=== PATIENT | male | born 1955 | race Caucasian/White ===

== ENCOUNTER 2020-02-29 08:16 | Emergency (ER) | payer MEDICARE, SELFPAY ==
--- NOTE | 2020-02-29 08:18 | ED.GENADULT ---
HPI - General Adult General Chief complaint: Upper Respiratory Infection Stated complaint: short of breat/dizzy/sweaty Time Seen by Provider: 02/29/20 08:18 Source: patient Mode of arrival: ambulatory Limitations: no limitations History of Present Illness HPI narrative: 64-year-old male patient presents to the [facility] with complaints of chest pain and dizziness along with some shortness of breath that started this morning after he woke up. Patient states he has been dealing with some of the shortness of breath and the chest pain for the past 5 or 6 days now and is been intermittent. Patient states he did see his primary doctor yesterday and had some blood work done however he has not had any results. Patient was told by his doctor he might need an ultrasound but again has not had any results yet. Patient states he woke up this morning went to go the bathroom and suddenly got dizzy, shortness of breath chest pain that radiates to the back as well as some nausea. Patient states he had to go and lay down. Patient is tearful during exam. Related Data Home Medications Medication Instructions Recorded Confirmed acyclovir 400 mg PO DIRECTED 02/29/20 02/29/20 baclofen 20 mg PO DAILY 02/29/20 02/29/20 famotidine 40 mg PO BID 02/29/20 02/29/20 finasteride 5 mg PO DIRECTED 02/29/20 02/29/20 tamsulosin 0.4 mg PO DIRECTED 02/29/20 02/29/20 Allergies Allergy/AdvReac Type Severity Reaction Status Date / Time No Known Drug Allergies Allergy Verified 06/25/12 16:33 Review of Systems Review of Systems: Narrative: CONSTITUTIONAL: Denies fever, chills, or sweats. EYES: Denies visual changes, redness, or discharge. ENT: Denies rhinorrhea, congestion, sore throat, or otalgia. CARDIOVASCULAR: Positive chest pain, denies palpitations, or edema. RESPIRATORY: Denies cough, positive dyspnea. GASTROINTESTINAL: Denies abdominal pain, positive nausea, denies vomiting, or diarrhea. GENITOURINARY: Denies dysuria or hematuria. SKIN: Denies rash or itching. MUSCULOSKELETAL: Denies back pain, joint pain, or myalgia. NEUROLOGIC: Denies headache, numbness, or weakness. Positive dizziness PSYCHIATRIC: Denies anxiety or depression. [facility] Past Medical History Medical History (Updated 02/29/20 @ 08:58 by GUSTAVO Rhodes) Chronic back pain Depression Surgical History Surgical History (Updated 02/29/20 @ 08:52 by GUSTAVO Rhodes) History of appendectomy History of cholecystectomy History of common bile duct surgery Comments At the time of my signature I agree with nursing past medical history, surgical, social, and family history. There is no relevant family history pertinent to the presenting complaint. Exam Narrative: Exam Narrative: GENERAL: Well-appearing, well-nourished, and in no acute distress. Patient tearful during exam. HEAD: Normocephalic, atraumatic. EYES: PERRLA and EOMI. ENT: Nares clear, no rhinorrhea or epistaxis. Mucous membranes moist. Bilateral TMs are clear with no erythema or foreign bodies to the canal. Posterior pharynx no erythema, tonsil enlargement, exudates or lesions. NECK: Supple. No lymphadenopathy CHEST: Clear to auscultation. No respiratory distress. Patient able talk in clear complete sentences. HEART: Regular rate and rhythm. No murmur heard. Normal peripheral pulses. ABDOMEN: Soft, flat, nondistended. No guarding, rebound tenderness, or rigid. No pulsatilla masses. Bowel sounds present in all four quadrants. No organomegaly. Negative Garcia?s sign. No periumbicial tenderness. No Supra public tenderness or distension. Good femoral pulses bilaterally. No hernia noted. No scars or surface trauma. EXTREMITIES: Normal range of motion. No edema. SKIN: Warm, dry, no rash. NEURO: No focal deficits. Alert and oriented x3. Course Vital Signs Vital signs: Vital Signs Temperature 37.2 C 02/29/20 08:25 Pulse Rate 66 02/29/20 08:25 Respiratory Rate 16 02/29/20 08:25 Blood Pressure
[2020-02-29 08:25] VITALS: BP 124/78; PULSE 66; RESP 16; TEMP 37.2; O2SAT 99
--- NOTE | 2020-02-29 08:37 | ECG_ITS ---
Measurements Intervals [place] Rate: 67 P: 17 NC: 175 QRS: -28 QRSD: 86 T: 49 QT: 399 QTc: 421 Interpretive Statements SINUS RHYTHM LOW QRS VOLTAGE IN LIMB LEADS BORDERLINE ECG Electronically Signed On 02-29-2020 12:00:41 CDT by Hung Thao D.O.
[2020-02-29] MEDS: ASPIRIN 81 MG CHEWABLE TABLET 324 MG PO (08:53)
== END 2020-02-29 08:52 | disposition short-term general hospital (02) ==
PROVIDERS: Emergency Provider Nurse Practitioner Family; PCP Internal Medicine Geriatric Medicine
DX: R07.9 Chest pain, unspecified (principal); R06.02 Shortness of breath; R42 Dizziness and giddiness; F32.9 Major depressive disorder, single episode, unspecified; M19.90 Unspecified osteoarthritis, unspecified site; N40.0 Benign prostatic hyperplasia without lower urinary tract symptoms; G62.9 Polyneuropathy, unspecified; Z85.51 Personal history of malignant neoplasm of bladder
CPT/HCPCS: 93005; 99203; A9270; G0463

== ENCOUNTER 2021-04-19 11:49 | Emergency (ER) | payer MEDICARE, SELFPAY ==
[2021-04-19 11:53] VITALS: BP 122/67; PULSE 83; RESP 20; TEMP 36.6; O2SAT 99
--- NOTE | 2021-04-19 11:54 | ED.URI ---
HPI - URI/Sore Throat General Chief Complaint: Upper Respiratory Infection Stated Complaint: Covid Symptoms Time Seen by Provider: 04/19/21 11:54 Source: patient and RN notes reviewed History of Present Illness HPI Narrative: Patient is a 65-year-old male who presents the urgent care with complaints of runny nose, cough, sneezing, watery eyes and fatigue. Patient states that he was called about his scheduled stress test that is supposed to be on Monday and was told to come to our facility for preprocedure Covid test. Patient states his symptoms started approximately 3 or 4 days ago and he has been taking Benadryl and NyQuil [id number] for his symptoms. Patient denies of any fevers, nausea, vomiting, chest pain. Patient denies of any shortness of breath. Patient states that he has had Covid approximately 4 to 6 months ago and believes he also had Covid in September. Patient does not have the Covid vaccine. No other acute complaints. No acute distress noted. Patient aware of the plan of care. Some parts of this dictation were generated by voice recognition software and may contain typographical and/or grammatical inaccuracies. Related Data Home Medications Medication Instructions Recorded Confirmed acyclovir 400 mg PO BID 02/29/20 04/19/21 baclofen 20 mg PO TID 02/29/20 04/19/21 famotidine 40 mg PO BID 02/29/20 04/19/21 finasteride 5 mg PO DAILY 02/29/20 04/19/21 tamsulosin 0.4 mg PO DAILY 02/29/20 04/19/21 Allergies Allergy/AdvReac Type Severity Reaction Status Date / Time No Known Drug Allergies Allergy Unknown Verified 04/19/21 11:52 Review of Systems Review of Systems: CONSTITUTIONAL: Denies fever, chills, or sweats. Reports of fatigue EYES: Denies visual changes, redness.. Reports of watery eyes ENT: Reports of rhinorrhea, sneezing CARDIOVASCULAR: Denies chest pain, palpitations, or edema. RESPIRATORY: Denies cough or dyspnea. GASTROINTESTINAL: Denies abdominal pain, nausea, vomiting, or diarrhea. GENITOURINARY: Denies dysuria or hematuria. SKIN: Denies rash or itching. MUSCULOSKELETAL: Denies back pain, joint pain. Reports of body aches NEUROLOGIC: Denies headache, numbness, or weakness. All other systems reviewed are negative, except as documented in HPI. [facility] Past Medical History Medical History (Updated 04/19/21 @ 12:15 by GUSTAVO Anderson) Chronic back pain Depression Surgical History Surgical History (Updated 02/29/20 @ 08:52 by GUSTAVO Rhodes) History of appendectomy History of cholecystectomy History of common bile duct surgery Comments At the time of my signature, I reviewed and agree with the nursing past medical, surgical, social, and family history. There is no relevant family history pertinent to the patient complaint. Exam Narrative: GENERAL: This is a well-nourished, well-developed patient, in no apparent distress. HEAD: normocephalic, atraumatic. EYES: PERRL. Sclera clear/white. Vision is grossly intact. EARS: External ears normal, auditory canals clear and without drainage, TMs normal without perforation. Hearing grossly intact. NOSE: External nose normal with no obvious nasal discharge, nares without redness, no rhinorrhea. THROAT: Mucous membranes moist, posterior pharynx clear. Mild postnasal drainage NECK: Neck supple CARDIOVASCULAR: Regular rate and rhythm without murmurs, gallops, or rubs. RESPIRATORY: Clear to auscultation. Breath sounds equal bilaterally. No wheezes, rales, or rhonchi. SKIN: warm, intact with no suspicious lesions or rash, good texture and turgor. NEURO: awake, alert, and oriented to person, place and time. There were no obvious focal neurologic abnormalities. EXTREMITIES: No clubbing, cyanosis, or edema. Course Vital Signs Vital signs: Vital Signs Temperature 97.9 F 04/19/21 11:53 Pulse Rate 83 04/19/21 11:53 Respiratory Rate 20 04/19/21 11:53 Blood Pressure 122/67 04/19/21 11:53 Pulse Oximetry 99 04/19/21
[2021-04-20 19:55] LABS: SARS-CoV-2 RNA PCR Negative
== END 2021-04-19 12:18 | disposition home or self-care (01) ==
PROVIDERS: Emergency Provider Nurse Practitioner Family; PCP Internal Medicine Geriatric Medicine
DX: J06.9 Acute upper respiratory infection, unspecified (principal); Z20.822 Contact with and (suspected) exposure to COVID-19
CPT/HCPCS: 99213; C9803; G0463; U0003; U0005

== ENCOUNTER 2023-10-24 14:01 | Emergency (ER) | payer OTHER, MEDICARE, SELFPAY ==
[2023-10-24 14:10] VITALS: BP 121/78; PULSE 79; RESP 20; TEMP 37.2; O2SAT 97
--- NOTE | 2023-10-24 14:17 | ED.EYEPROB ---
HPI - Eye Problem General Chief complaint: Eye Problems Stated complaint: Right Eye Problem Source: patient Mode of arrival: ambulatory Limitations: no limitations History of Present Illness HPI Narrative: 68-year-old male presented for complaint of right eye irritation after hand brake tester squirted into his eye about an hour prior to arrival. Pt was unable to immediately irrigate. He held a cold compress to the site. Endorses burning, rates 4/10; mild blurred vision. MD chief complaint: eye pain Related Data Home Medications Medication Instructions Recorded Confirmed baclofen 20 mg tablet 20 mg PO TID 02/29/20 10/24/23 famotidine 40 mg tablet 40 mg PO BID 02/29/20 10/24/23 finasteride 5 mg tablet 5 mg PO DAILY 02/29/20 10/24/23 albuterol sulfate 90 mcg/actuation 2 puff inhalation Q6H PRN Wheezing 10/24/23 10/24/23 aerosol inhaler Allergies Allergy/AdvReac Type Severity Reaction Status Date / Time codeine AdvReac Nausea and Verified 10/24/23 14:55 Vomiting duloxetine AdvReac Nausea and Verified 10/24/23 14:54 Vomiting Review of Systems Review of Systems: CONSTITUTIONAL: Denies body aches, fever, chills EYES: Endorses pain to right eye; Denies visual changes, swelling, redness, FB sensation, photophobia ENT: Denies rhinorrhea, congestion, sore throat, or otalgia. CARDIOVASCULAR: Denies chest pain, palpitations RESPIRATORY: Denies cough or dyspnea. GASTROINTESTINAL: Denies abdominal pain, nausea, vomiting, or diarrhea. SKIN: Denies rash, itching, or wounds. MUSCULOSKELETAL: Denies back pain, joint pain, or myalgia. NEUROLOGIC: Denies headache, numbness, tingling, or weakness. All systems reviewed & are unremarkable except as noted in HPI and below PMFSH Past Medical History Medical History Chronic back pain Depression Surgical History Surgical History History of appendectomy History of cholecystectomy History of common bile duct surgery Comments At time of signature, I have reviewed and agree with nursing past medical, surgical, social and family history unless otherwise noted. Please see nursing chart for further information. There is no relevant family history pertinent to the presenting complaint Exam Narrative: GENERAL: Well-appearing HEAD: Normocephalic, atraumatic. EYES: mild right conjunctival injection, No eye lid swelling/redness. PERRLA, EOMI. Lid eversion shows no FB. ENT: Mucous membranes pink and moist. No rhinorrhea. HEART: Regular rate and rhythm. ABDOMEN: Soft, nontender, nondistended SKIN: Warm, dry, no rash. Normal skin turgor. NEURO: No focal deficits. Alert and oriented x3 PSYCH: Normal affect. Course Course Emergency Course: Patient is aware of diagnosis, understands and agrees to treatment plan. Anticipatory guidance given. Patient agrees to follow-up as directed and is aware of reasons to seek care at the emergency department. Portions of this record may have been created with voice recognition software Level of Care: Express Care Visit Vital Signs Vital signs: Vital Signs Temperature 98.9 F 10/24/23 14:10 Pulse Rate 79 10/24/23 14:10 Respiratory Rate 20 10/24/23 14:10 Blood Pressure 121/78 10/24/23 14:10 Pulse Oximetry 97 10/24/23 14:10 Oxygen Delivery Room Air 10/24/23 14:10 Temperature 98.9 F 10/24/23 14:10 Pulse Rate 79 10/24/23 14:10 Respiratory Rate 20 10/24/23 14:10 Blood Pressure 121/78 10/24/23 14:10 Pulse Oximetry 97 10/24/23 14:10 Oxygen Delivery Room Air 10/24/23 14:10 MDM - Eye Problem MDM Narrative Medical decision making narrative: right eye irrigated for at least 20 minutes with saline and eye wash. Patient tolerated well. Continues to endorse mild burning. Pt will continue irrigation at home. Will send prescription for ofloxacin and provide op
== END 2023-10-24 15:20 | disposition home or self-care (01) ==
PROVIDERS: Emergency Provider Nurse Practitioner Family; PCP Internal Medicine Geriatric Medicine
DX: Z77.098 Contact with and (suspected) exposure to other hazardous, chiefly nonmedicinal, chemicals (principal)
CPT/HCPCS: 99213; G0463

== ENCOUNTER 2024-11-08 15:10 | Emergency (ER) | payer MEDICARE, SELFPAY ==
--- NOTE | ~2024-11-08 | XR_ITS ---
XR wrist RT min 3V Ordering provider: Johanna Bui NP History: . pain, door fell on patient . Comparison: None. FINDINGS: BONES: No acute fracture or dislocation. No definite scaphoid fracture. JOINT SPACES: Normal. SOFT TISSUES: Normal. IMPRESSION: No acute osseous abnormality right wrist. Reviewed, dictated and finalized at location A.
--- NOTE | ~2024-11-08 | XR_ITS ---
XR elbow RT min 3V Ordering provider: Johanna Bui NP History: . PULLING INJURY, GEN PAIN . Comparison: None. FINDINGS: BONES: No acute fracture or dislocation. JOINT SPACES: Osteophytes seen in the ulna. SOFT TISSUES: Unremarkable. No definite joint effusion. IMPRESSION: No acute osseous abnormality of the right elbow. Osteoarthritic changes. Reviewed, dictated and finalized at location A.
--- OUTSIDE RECORDS SUMMARY | 2024-11-08 15:13 | XMS_ITS | Encounter Summary ---
Author Organization [facility] Address [address] [place] [address] Phone Care Team Providers Care Freight Flagman Name Role Phone Nannette Hubbard MD Primary Care Provider + [phone] Herrera Silva MD Unavailable [phone] Coleman Franklin MD Unavailable [phone] Elkin Purvis MD Unavailable [phone] Aris Luis MD Unavailable [phone] Leah Hanley MD Unavailable [phone] Nelsy Bellamy MD Unavailable [phone] Lee Chandler MD Unavailable [phone] Kimberlee Calhoun DO Unavailable [phone] Encounter Details Date Type Department Care Team (Late st Contact Info) Description 07/18/2017 Orders Only [facility] [address] [place] [address] Nannette Hubbard MD [address] [place] [address] Social History Tobacco Use Types Packs/Day Years Used Date Smoking Tobacco: Never Smokeless Tobacco: Never Alcohol Use Standard Drinks/Week Comments No 0 (1 standard drink = 0.6 oz pur e alcohol) Sex and Gender Information Value Date Recorded Sex Assigned at Not on file Legal Sex Male 4:47 PM MANAGER COSMETIC Gender Identity Not on file Sexual Orientation Not on file documented as of this encounter Plan of Treatment Not on file documented as of this encounter Procedures Procedure Name Priority Date/Time Associated Diagnosis Comments SCAN - LABS 07/18/2017 8:54 AM MANAGER COSMETIC documented in this encounter Results * SCAN - LABS (07/18/2017 8:54 AM MANAGER COSMETIC) Nannette Hubbard MD Final Resu lt documented in this encounter Visit Diagnoses Not on filedocumented in this encounter Additional Health Concerns Infection Onset Date Last Indicated Resolved Time COVID: Suspected 02/29/2020 02/29/2020 03/14/2020 3:07 AM CDT COVID: Suspected 10/14/2023 10/14/2023 10/14/2023 6:14 PM MANAGER COSMETIC documented as of this encounter Care Teams Freight Flagman Relationship Specialty Start Date End Date Nannette Hubbard MD PCP - General 11/18/16 Herrera Silva MD [address] [place] [address] Surgeon General Surgery 11/22/17 05/23/22 Coleman Franklin MD [address] [place] [address] Surgeon General Surgery 11/22/17 05/23/22 Elkin Purvis MD [address] [place] [address] Surgeon Vascular Surgery 05/10/20 [place] [address] [place] [address] Consulting Physician Urology 06/13/22 Leah Hanley MD [address] [place] [address] Referring Physician Gastroenterology 02/25/20 Nelsy Bellamy MD [address] [address] Referring Physician Orthopedic Surgery 06/26/23 Lee Chandler MD [address] [place] [address] Surgeon Anesthesiology 02/25/12 Kimberlee Calhoun DO [address] [facility] [place] [address] Consulting Physician Otolaryngology 10/01/24 documented as of this encounter
--- OUTSIDE RECORDS SUMMARY | 2024-11-08 15:13 | XMS_ITS | Encounter Summary ---
Author Organization [facility] Address [address] [place] [address] Care Team Providers Care Loom Fixer Helper Name Role Phone Nannette Hubbard MD Primary Care Provider + [phone] Elkin Purvis MD Unavailable [phone] Aris Luis MD Unavailable [phone] Leah Hanley MD Unavailable [phone] Nelsy Bellamy MD Unavailable [phone] Lee Chandler MD Unavailable [phone] Kimberlee Calhoun DO Unavailable [phone] Reason for Visit * Reason Onset Date Comments X-ray 11/08/2024 Encounter Details Date Type Department Care Team (Late st Contact Info) Description 11/08/2024 Telephone [facility] [address] [place] [address] Nannette Hubbard MD [address] [address] X-ray Social History Tobacco Use Types Packs/Day Years Used Date Smoking Tobacco: Never Smokeless Tobacco: Never Alcohol Use Standard Drinks/Week Comments No 0 (1 standard drink = 0.6 oz pur e alcohol) AUDIT-C Answer Date Recorded Frequency of Alcohol Consumption Not on file 11/02/2022 Q2: How many drinks containi ng alcohol do you have on a typical day when you are drinking? Patient does not drink Frequency of Binge Drinking Not on file 10/19 PHQ-2 Answer Date Recorded PHQ-2 Total Score (If total score is 3 or more points, staff should administer the PHQ-9) 6 10/15/2024 PHQ-9 Answer Date Recorded PHQ-9 Total Score 21 10/15/2024 Personal Safety Answer Date Recorded Have you ever been in or are you currently in a harmful physical or emotional relationship or is someone making you feel afraid or unsafe? 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 Patient states that as he was moving a door the wind picked up and the door and he ended up injuring himself. [phone] documented in this encounter Plan of Treatment Not on file documented as of this encounter Visit Diagnoses Not on filedocumented in this encounter Care Teams Loom Fixer Helper Relationship Specialty Start Date End Date Nannette Hubbard MD PCP - General 11/18/16 Elkin Purvis MD Surgeon Vascular Surgery 05/10/20 [place] [address] [place] [address] Consulting Physician Urology 06/13/22 Leah Hanley MD [address] [place] [address] Referring Physician Gastroenterology 02/25/20 Nelsy Bellamy MD [address] [address] Referring Physician Orthopedic Surgery 06/26/23 Lee Chandler MD [address] [place] [address] Surgeon Anesthesiology 02/25/12 Kimberlee Calhoun DO [address] [place] [place] [address] Consulting Physician Otolaryngology 10/01/24 documented as of this encounter
--- OUTSIDE RECORDS SUMMARY | 2024-11-08 15:13 | XMS_ITS | Clinical Summary ---
Author Organization [facility] Address [address] [place] [address] Phone Care Team Providers Care Solderer Production Line Name Role Phone Nannette Hubbard MD Primary Care Provider [phone] Aris Luis MD Unavailable [phone] Allergies Active Allergy Reactions Criticality Noted Date Comments Codeine Nausea 10/21/2020 Medications tamsulosin (FLOMAX) 0.4 MG Capsule 1 Active finasteride (PROSCAR) 5 MG Tablet 1 Active acyclovir (ZOVIRAX) 400 MG Tablet 1 Active baclofen (LIORESAL) 20 MG Tablet 1 Active meloxicam (Mobic) 15 MG Tablet Take 1 Tablet by mouth daily. 30 Tablet 2 Active methocarbamol (ROBAXIN) 750 MG Tablet Take 1 Tablet by mouth 4 times daily. 30 Tablet 2 Active HYDROcodone-acet aminophen (NORCO) 5-325 MG TabletIndication s:Chronic bilateral low back pain with right-sided sciatica Take 1-2 Tablets by mouth every 8 hours as needed for Moderate or more severe pain. 12 Tablet 3 Active oxyCODONE (Roxicodone) 5 MG TabletIndication s:Chronic low back pain Take 1 Tablet by mouth every 8 hours as needed for Severe pain. 21 Tablet 3 Active ondansetron (ZOFRAN-ODT) 4 MG TABLET DISPERSIBLE Take 1 Tablet by mouth every 8 hours as needed for Nausea - 1st line. 20 Tablet Active Active Problems No known active problems Social History Tobacco Use Types Packs/Day Years Used Date Smoking Tobacco: Never Smokeless Tobacco: Never Tobacco Cessation:Counseling Given: Not Answered Alcohol Use Standard Drinks/Week Comments Never 0 (1 standard drink = 0.6 oz pur e alcohol) Sexually Active Control Partners Comments Not Currently Sex and Gender Information Value Date Recorded Sex Assigned at Male 06/17/2023 1:33 AM CDT Legal Sex Male 7:51 PM CDT Gender Identity Male 06/17/2023 1:33 AM CDT Sexual Orientation Not on file Last Filed Vital Signs Vital Sign Reading Time Taken Comments Blood Pressure 102/68 09/05/2023 12:45 AM INSTRUCTIONAL ASSISTANT Pulse 70 09/05/2023 12:45 AM INSTRUCTIONAL ASSISTANT Temperature 35.9 C (96.7 F) 09/04/2023 10:06 PM INSTRUCTIONAL ASSISTANT Respiratory Rate 13 09/05/2023 12:45 AM INSTRUCTIONAL ASSISTANT Oxygen Saturation 96% 09/05/2023 12:45 AM INSTRUCTIONAL ASSISTANT Inhaled Oxygen Concentration - - Weight 80.9 kg (178 lb 6.4 oz) 09/04/2023 10:06 PM INSTRUCTIONAL ASSISTANT Height 182.9 cm (6') 09/04/2023 10:06 PM INSTRUCTIONAL ASSISTANT Body Mass Index 24.2 09/04/2023 10:06 PM INSTRUCTIONAL ASSISTANT Plan of Treatment Health Maintenance Due Date Last Done Comments Hepatitis C Virus (HCV) Screening 1956 Colonoscopy 2001 Colorectal Cancer Screening 2001 Cologuard 2006 Immunochemical Fecal Occult Blood 2006 Pneumococcal Immunization (5 0+ years) (1 of 1 - PCV) 2006 Zoster Immunization (1 of 2) 2006 PSA Discussion 2011 Influenza Immunization (#1) 2024 05/30/2009 SARS-COV-2 Immunization ( - season) 2024 Respiratory Syncytial Virus (RSV) Immunization (Adult) (1 - 1-dose 75+ series) 2031 DTaP/Tdap/Td Immunization Discontinued 2013, 07/06/2002 TdaP Immunization Completed 07/22/2014 Hepatitis B Immunization Aged Out No longer eligible based on patient's age to complete this topic Meningococcal Immunization (ACWY) Aged Out No longer eligible based on patient's age to complete this topic Rotavirus Immunization Aged Out No lo nger eligible based on patient's age to complete this topic Insurance [facility]IC[facility] MEDICARE C [facility] [id number] Advance Directives Documents on File Type Date Recorded Patient Blasting Miner Expl anation Other Advance Directive 06/01/2022 1:15 PM US SCROTUM- PSA LAB Care Teams Solderer Production Line Relationship Specialty Start Date End Date Nannette Hubbard MD [address] [facility] [place] [address] PCP - General Geriatric Medicine 11/27/20 Aris Luis MD #[address] [facility], [facility] [address] [place] [address] Consulting Physician Urology 06/13/22
--- OUTSIDE RECORDS SUMMARY | 2024-11-08 15:13 | XMS_ITS | Encounter Summary ---
Author Organization [facility] Address [address] [place] [address] Phone Care Team Providers Care Relationship Consultant Name Role Phone Nannette Hubbard MD Primary Care Provider [phone] Aris Luis MD Unavailable [phone] Encounter Details Date Type Department Care Team (Late st Contact Info) Description 04/14/2021 Transcribe Orders [facility] Central Scheduling [address] [place] [address] Nannette Hubbard MD [address] [address] Social History Tobacco Use Types Packs/Day Years Used Date Smoking Tobacco: Never Smokeless Tobacco: Never Alcohol Use Standard Drinks/Week Comments Never 0 (1 standard drink = 0.6 oz pur e alcohol) Sex and Gender Information Value Date Recorded Sex Assigned at Male 06/17/2023 1:33 AM CDT Legal Sex Male 7:51 PM CDT Gender Identity Male 06/17/2023 1:33 AM CDT Sexual Orientation Not on file documented as of this encounter Plan of Treatment Not on file documented as of this encounter Visit Diagnoses Not on filedocumented in this encounter Additional Health Concerns Infection Onset Date Last Indicated Resolved Time COVID - 19 04/22/2022 04/22/2022 04/22/2022 12:1 1 PM CDT COVID - 19 Confirmed 04/22/2022 04/22/2022 022 12:16 AM CDT COVID - 19 09/04/2023 09/04/2023 09/14/2023 12:1 6 AM RESEARCH ARCHAEOLOGIST documented as of this encounter Care Teams Relationship Consultant Relationship Specialty Start Date End Date Nannette Hubbard MD [address] [facility] [place] [address] PCP - General Geriatric Medicine 11/27/20 Aris Luis MD [address] [facility] [address] [place] [address] Consulting Physician Urology 06/13/22 documented as of this encounter
--- OUTSIDE RECORDS SUMMARY | 2024-11-08 15:13 | XMS_ITS | Encounter Summary ---
Author Organization [facility] Address [address] [place] [address] Phone Care Team Providers Care Director Learning Services Name Role Phone Nannette Hubbard MD Primary Care Provider + [phone] Herrera Silva MD Unavailable Coleman Franklin MD Unavailable [phone] Elkin Purvis MD Unavailable [phone] Aris Luis MD Unavailable [phone] Leah Hanley MD Unavailable [phone] Nelsy Bellamy MD Unavailable [phone] Lee Chandler MD Unavailable [phone] Kimberlee Calhoun DO Unavailable [phone] Encounter Details Date Type Department Care Team (Late st Contact Info) Description 04/05/2017 Orders Only [facility] [address] [place] [address] Nannette Hubbard MD [address] [place] [address] Social History Tobacco Use Types Packs/Day Years Used Date Smoking Tobacco: Never Smokeless Tobacco: Never Alcohol Use Standard Drinks/Week Comments No 0 (1 standard drink = 0.6 oz pur e alcohol) Sex and Gender Information Value Date Recorded Sex Assigned at Not on file 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 Gender Identity Not on file Sexual Orientation Not on file documented as of this encounter Plan of Treatment Not on file documented as of this encounter Visit Diagnoses Not on filedocumented in this encounter Additional Health Concerns Infection Onset Date Last Indicated Resolved Time COVID: Suspected 02/29/2020 02/29/2020 03/14/2020 3:07 AM CDT COVID: Suspected 10/14/2023 10/14/2023 10/14/2023 6:14 PM FACTORY HAND documented as of this encounter Care Teams Director Learning Services Relationship Specialty Start Date End Date Nannette Hubbard MD PCP - General 11/18/16 Herrera Silva MD [address] [facility] [address] [place] [address] Surgeon General Surgery 11/22/17 05/23/22 Coleman Franklin MD [address] [place] [address] Surgeon General Surgery 11/22/17 05/23/22 Elkin Purvis MD [address] [place] [address] Surgeon Vascular Surgery 05/10/20 [place] [address] [place] [address] Consulting Physician Urology 06/13/22 Leah Hanley MD [address] [place] [address] Referring Physician Gastroenterology 02/25/20 Nelsy Bellamy MD [address] [facility] [address] [place] [address] Referring Physician Orthopedic Surgery 06/26/23 Lee Chandler MD [address] [place] [address] Surgeon Anesthesiology 02/25/12 Kimberlee Calhoun DO [address] [facility] [address] [place] [address] Consulting Physician Otolaryngology 10/01/24 documented as of this encounter
--- OUTSIDE RECORDS SUMMARY | 2024-11-08 15:13 | XMS_ITS | Encounter Summary ---
Author Organization [facility] Address [address] [place] [address] Care Team Providers Care Director Apparel Name Role Phone Nannette Hubbard MD Primary Care Provider + [phone] Elkin Purvis MD Unavailable [phone] Aris Luis MD Unavailable [phone] Leah Hanley MD Unavailable [phone] Nelsy Bellamy MD Unavailable [phone] Lee Chandler MD Unavailable [phone] Kimberlee Calhoun DO Unavailable [phone] Reason for Referral * Consultation (Routine) - Closed Specialty Diagnoses / Procedures Referred By Contgenny t Referred To Contact Vascular Surgery Diagnoses Stenosis of left carotid artery Kimberlee Calhoun, DO [address] [facility] [address] SAR[address] [address] Phone: tel: fax: [facility] at [address] [place] [address] Phone: tel: fax: Referral ID Status Reason Start Date Expiration Date V isits Requested Visits Authorized [id number] Closed Specialty Services Required 10/22/2024 11/21/2025 1 1 Question Answer Please select the performing region: [facility] [[id number]] Please select the performing department: [facility] [[id number]] # of visits: 1 ORMANCE INSTRUCTOR Encounter Details Date Type Department Care Team (Late st Contact Info) Description 10/22/2024 Results Follow-Up [facility] [address] [facility] [place] [id number] Kimberlee Calhoun DO [address] [facility] [address] [place] [address] Stenosis of left carotid artery (Primary Dx) Social History Tobacco Use Types Packs/Day Years [...] on file 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 Gender Identity Not on file Sexual Orientation Not on file 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 Not on file Not on file Not on file documented as of this encounter Plan of Treatment Scheduled Referrals Name Type Priority Associated Diagnoses Order Schedule Ambulatory referral to Vascular Surgery Outpatient Referral Routine Stenosis of left carotid artery Expected: 11/05/2024 (Approximate), Expires: 10/22/2025 documented as of this encounter Visit Diagnoses Diagnosis Stenosis of left carotid artery- Primary Occlusion and stenosis of carotid artery without mention of cerebral infarction documented in this encounter Care Teams Director Apparel Relationship Specialty Start Date End Date Stabell, Nannette M., MD PCP - General 11/18/16 Elkin Purvis MD Surgeon Vascular Surgery 05/10/20 [place] [address] [place] [address] Consulting Physician Urology 06/13/22 Leah Hanley MD [address] [place] [address] Referring Physician Gastroenterology 02/25/20 Nelsy Bellamy MD [address] [place], [place] [address]BRADEN KEENA [address] [address] Referring Physician Orthopedic Surgery 06/26/23 Lee Chandler MD [address] [address] Surgeon Anesthesiology 02/25/12 Kimberlee Calhoun DO [address] [facility] [address] [place] [address] Consulting Physician Otolaryngology 10/01/24 documented as of this encounter
--- OUTSIDE RECORDS SUMMARY | 2024-11-08 15:14 | XMS_ITS | Clinical Summary ---
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 abs 0.6 0.2 - 0.8 K/cumm CERNER CH Comment:Testing performed by : [facility], [address] [place] [address]., [address] Eosinophil abs 0.2 0.0 - 0.5 K/cumm CERNER CH Comment:Testing performed by : [address], [address] Basophil abs 0.1 0.0 - 0.1 K/cumm CERNER CH Comment:Testing performed by : [address] [address] Neutrophil pct 54.4 % CERNER CH Comment: Interpretive Data Percent cell count reference ranges are not reported, since discordance with absolute values may lead to misinterpretation of CBC data. Current Interpretive Data was last revised on 2017. Testing performed by: [address] [address] Imm gran pct 0.1 % CERNER CH Comment: Interpretive Data Percent cell count reference ranges are not reported, since discordance with absolute values may lead to misinterpretation of CBC data. Current Interpretive Data was last revised on 2017. Testing performed by: [address] [address] Lymphocyte pct 34.7 % CERNER CH Comment: Interpretive Data Percent cell count reference ranges are not reported, since discordance with absolute values may lead to misinterpretation of CBC data. Current Interpretive Data was last revised on 2017. Testing performed by: [address], [address] Monocyte pct 7.9 % CERNER CH Comment: Interpretive Data Percent cell count reference ranges are not reported, since discordance with absolute values may lead to misinterpretation of CBC data. Current Interpretive Data was last revised on 2017. Testing performed by: [address] [address] Eosinophil pct 2.1 % JOSE FRANCISCO Comment: Interpretive Data Percent cell count reference ranges are not reported, since discordance with absolute values may lead to misinterpretation of CBC data. Current Interpretive Data was last revised on 2017. Testing performed by: [address] [address] Basophil pct 0.8 % JOSE FRANCISCO Comment: Interpretive Data Percent cell count reference ranges are not reported, since discordance with absolute values may lead to misinterpretation of CBC data. Current Interpretive Data was last revised on 2017. Testing performed by: [address], [address] Blood 10/01/2024 1:23 PM ATM TECHNICIAN 10/01/2024 8:53 PM ATM TECHNICIAN us Nannette Mayo MD LAB BLOOD ORDERABLES Final Result [address] Department [place] [address] * CBC with auto differential (10/01/2024 1:23 PM ATM TECHNICIAN) WBC 7.2 3.8 - 9.9 K/cumm Comment:Testing performed by : [address] [address] Hgb 15.8 13.0 - 17.5 g/dL JOSE FRANCISCO Comment:Testing performed by : [address], [address] Hct 47.8 38.9 - 50.3 % JOSE FRANCISCO Comment:Testing performed by : [address] [address] Plt 211 150 - 400 K/cumm JOSE FRANCISCO Comment:Testing performed by : [address] [address] MPV 10.8 9.1 - 12.3 fL CERNER CH Comment:Testing performed by : [facility], [address] [place] [address]., [address] RBC 4.96 4.30 - 5.80 M/cumm CERNER CH Comment:Testing performed by : [facility], [address] [place] [address]., [address]17 MCV 96.4 81.3 - 96.4 fL CERNER CH Comment:Testing performed by : [facility], [address] [place] [address]., [address] MCH 31.9 27.1 - 33.3 pg CERNER CH Comment:Testing performed by : [facility], [address] [place] [address], [address] MCHC 33.1 32.3 - 35.7 g/dL CERNER CH Comment:Testing performed by : [facility], [address] [place] [address], [address] RDW CV 12.5 11.1 - 14.9 % CERNER CH Comment:Testing performed by : [facility], [address] [place] [address], [address] RDW SD 44.7 35.7 - 48.1 fL CERNER CH Comment:Testing performed by : [facility], [address] [place] [address], [address] NRBC abs 0.00 0.00 - 0.01 K/cumm CERNER CH Comment:Testing performed by : [facility], [address] [place] [address]., [address] Blood 10/01/2024 1:23 PM ATM TECHNICIAN 10/01/2024 8:53 PM ATM TECHNICIAN us Nannette Mayo MD LAB BLOOD ORDERABLES Final Result [address] Department [place] [address] * TSH (10/01/2024 1:23 PM ATM TECHNICIAN) Thyroid Stimulating Hormone 1.77 0.30 - 4.20 mcIUnit/mL Comment:Testing performed by : [address], [address] Blood 10/01/2024 1:23 PM ATM TECHNICIAN 10/01/2024 8:53 PM ATM TECHNICIAN us Nannette Mayo MD LAB BLOOD ORDERABLES Final Result [facility] [address] [address] [place] [address] * Vitamin B12 (10/01/2024 1:23 PM ATM TECHNICIAN) Pathologist [facility] Vitamin B12 269 230 - 1,250 pg/mL Comment:Testing performed by : [facility], [address] [place] [address]., [address] Blood 10/01/2024 1:23 PM ATM TECHNICIAN 10/01/2024 8:53 PM ATM TECHNICIAN us Nannette Mayo MD LAB BLOOD ORDERABLES Final Result Performing Organization Address [facility] Co de Phone Number [facility] [address] [facility] [place] [address] * (ABNORMAL) Creatine kinase (CK), total (10/01/2024 1:23 PM ATM TECHNICIAN) Pathologist [facility] CK 39(L) 40 - 300 Units/L Comment:Testing performed by : [facility], [address] [place] [address]., [address] Blood 10/01/2024 1:23 PM ATM TECHNICIAN 10/01/2024 8:53 PM ATM TECHNICIAN us Nannette Mayo MD LAB BLOOD ORDERABLES Final Result Performing Organization Address City/[facility]/ZIP Co de Phone Number [facility] [address] [facility] [place] [address] * Comprehensive metabolic panel (10/01/2024 1:23 PM ATM TECHNICIAN) Pathologist [facility] Sodium 141 135 - 145 mmol/L Comment:Testing performed by : [facility], [address] [place] [address]., [address] Potassium, pl 4.8 3.3 - 4.9 mmol/L CERNER CH Comment:Testing performed by : [address] [address] Chloride 102 97 - 110 mmol/L CERNER CH Comment:Testing performed by : [address] [address] CO2 24 22 - 32 mmol/L CERNER CH Comment:Testing performed by : [address], [address] Anion gap 15 2 - 15 mmol/L CERNER CH Comment:Testing performed by : [address] [address] BUN 12 6 - 25 mg/dL CERNER CH Comment:Testing performed by : [address], [address] Creatinine 1.13 0.80 - 1.30 mg/dL CERNER CH Comment:Testing performed by : [address], [address] Glucose 88 70 - 199 mg/dL CERNER CH Comment: Interpretive Data Fasting glucose >/= 126 mg/dl is diagnostic for diabetes. Fasting is defined as no caloric intake for at least 8 hours. Fasting glucose between 100 mg/dl to 125 mg/dl is diagnostic of prediabetes. In a patient with classic symptoms of hyperglycemia or hyperglycemic crisis, a random glucose >/= 200 mg/dl is diagnostic for diabetes. In the absence of unequivocal hyperglycemia, results should be confirmed by repeat testing. The classification and Diagnosis of Diabetes Diabetes Care 202; 46: S19-S40. Current interpretive data was last revised 2022. Testing performed by: [address] [address] Calcium 9.8 8.5 - 10.3 mg/dL CERNER CH Comment:Testing performed by : [address] [address] Bilirubin, total 0.6 0.1 - 1.2 mg/dL CERNER CH Comment:Testing performed by : [address] [address] Protein, pl 7.5 6.5 - 8.5 g/dL CERNER CH Comment:Testing performed by : [address], [address] Albumin 4.6 3.5 - 5.0 g/dL CERNER Comment:Testing performed by : [facility], [address] [place] [address]., [address] Alk phos 74 40 - 130 Units/L CERNER Comment:Testing performed by : [facility], [address] [place] [address]., [address] ALT 17 7 - 55 Units/L CERNER Comment:Testing performed by : [facility], [address] [place] [address]., [address] AST 25 10 - 50 Units/L [facility] Comment:Testing performed by : [facility], [address] [place] [address]., [address] Blood 10/01/2024 1:23 PM ATM TECHNICIAN 10/01/2024 8:53 PM ATM TECHNICIAN us Nannette Mayo MD LAB BLOOD ORDERABLES Final Result Performing Organization Address [facility] Co de Phone Number [facility] [address] [place] [address] * PSA screen (01/02/2024 2:11 PM CDT) PSA-Total 0.27 <=5.40 ng/mL Comment: Interpretive Data AGE SEX REFERENCE INTERVAL 0 minutes-150 years Female None 0 minutes-49 years Male None 50-59 years Male 0-3.90 60-69 years Male 0-5.40 70-79 years Male 0-6.20 80-150 years Male 0-6.20 The Gabriel PSA Total assay procedure was used. Results from different manufacturers or methods may not be comparable. Serial testing should be performed using the same method. Current interpretive data last revised 21. Testing performed by: [facility], [address] [place] [address]., [address] Blood 01/02/2024 2:11 PM CDT 01/02/2024 6:37 PM CDT us Nannette Mayo MD LAB BLOOD ORDERABLES Final Result Performing Organization Address [facility] Co de Phone Number [facility] [address] [place] [address] * COLONOSCOPY (11/02/2022 10:47 AM CDT) Anatomical Region Laterality Modality Other Narrative Procedure Note Leah Hanley MD - 11/02/2022 10:47 AM CDT ENDOSCOPY LAB Patient Name: Abilio Ugarte Procedure Date: 11/02/2022 10:47 AM Date of : 1955 Admit Type: Outpatient Age: 67 Gender: Male Attending MD: Leah Hanley M.D. Room: [facility] ENDOSCOPY ROOM 05 Note Status: Finalized Procedure: Colonoscopy Indications: Screening for colorectal malignant neoplasm, Thisis the patient's first colonoscopy, Incidental -Positive Cologuard test Providers: Leah Hanley M.D. Referring MD: Nannette Mayo M.D. Medicines: Monitored Anesthesia Care Complications: No immediate complications. Estimated Blood Loss: Estimated blood loss: none. Procedure: Pre-Anesthesia Assessment: - Immediately prior to administration ofmedications, the patient was re-assessed for adequacy to receive sedatives. The benefits, risks and alternatives of theprocedure and sedation were discussed and informed consentwas obtained. All questions were answered. Please referto the signed informed consent document in the medical record. The scope was passed under direct vision.The [id number] was introduced through the anusand advanced to the cecum, identified by appendiceal orifice and ileocecal valve. The colonoscopy was performed without difficulty. The patient tolerated the procedure well. The quality of the bowel preparation was evaluated using the BBPS (BostonBowel Preparation Scale) with scores of: Right Colon = 2 (minor amount of residual staining, small fragmentsof stool and/or opaque liquid, but mucosa seen well), Transverse Colon = 3 (entire mucosa seen well withno residual staining, small fragments of stool oropaque liquid) and Left Colon = 2 (minor amount ofresidual staining, small fragments of stool and/or opaque liquid, but mucosa seen well). The total BBPS score equals 7. The quality of the bowel preparation was good. Bowel prep was administered using a splitdose. Findings: Three sessile polyps were found in the transverse colon and ascending colon. The polyps were 10 mm in size. These polyps were removed witha cold snare. Resection and retrieval were complete. Five sessile polyps were found in the sigmoid colon and descending colon. The polyps were 6 to 10 mm in size. These polyps were removed with a cold snare. Resection and retrieval were complete. Impression: - Three 10 mm polyps in the transverse colon and in the ascending colon, removed with a cold snare. Resected and retrieved. - Five 6 to 10 mm polyps in the sigmoid colon andin the descending colon, removed with a cold snare. Resected and retrieved. Recommendation: - Await pathology results. - Repeat colonoscopy in 3 years for surveillancebased on pathology results. - . Attending Participation: I personally performed the entire procedure. Electronically signed by Leah Hanley MD Leah Hanley M.D. 11/02/2022 11:34:55 AM Number of Addenda: 0 Note Initiated On: 11/02/2022 10:47 AM us Leah Hanley MD ENDOSCOPY PROCEDURES Final Res ult * Hepatitis C antibody (02/09/2021 12:11 PM CDT) Hep C Ab Nonreactive Nonreactive JOSE FRANCISCO HOOKS Comment: Interpretive Data Nonreactive: Antibodies to HCV not detected. Does NOT exclude the possibility of recent exposure to HCV. Equivocal: Equivocal for HCV antibodies. Supplemental molecular testing will be automatically performed to determine infection status in accordance with current CDC screening recommendations. Reactive: Positive for HCV antibodies. This may represent current or past HCV infection. Supplemental molecular testing will be automatically performed to determine current infection status in accordance with current CDC screening recommendations. Interpretive data was last revised on 2019. Blood specimen (specimen) 02/09/2021 12:11 PM CDT 02/09/2021 5:48 PM CDT Nannette Mayo MD LAB MICROBIOLOGY - GENERAL ORDERABLES Final Result JOSE FRANCISCO HOOKS [address] [place] [address] from Last 3 Months or Most Recently Relevant to Health Maintenance Insurance [facility] ADVANTAGE [facility] Address: [facility] [address] [place] [address] [facility] [employer] ADVANTAGE [facility] Address: [address] [address] [place] [address] [facility] Address: [address] [address] [place] [address] [facility] Address: [address] [address] [place] [address] Advance Directives For more information, please contact: [phone] Documents on File Type Date Recorded Patient Safety And Skill Based Pay Manager Expl anation ADVANCE DIRECTIVE 05/24/2022 POLST/DNR ADVANCE DIRECTIVE 01/28/2020 POWER OF A TTORNEY-MEDICAL ADVANCE DIRECTIVE 05/29/2017 2:23 PM POWER OF CRYSTAL EVALUATOR * Full Code (Latest Code Status on File) Date Activated Date Inactivated Comments 11/02/2022 9:39 AM 11/02/2022 4:19 PM * Full Code Date Activated Date Inactivated Comments 03/20/2020 7:58 AM 03/20/2020 1:30 PM Care Teams Rubber Grinder Relationship Specialty Start Date End Date Nannette Mayo MD PCP - General 11/18/16 Elkin Purvis MD Surgeon Vascular Surgery 05/10/20 [place] [address] [place] [address] Consulting Physician Urology 06/13/22 Leah Hanley MD [address] [place] [address] Referring Physician Gastroenterology 02/25/20 Nelsy Bellamy MD [address] [facility] [address] [address] Referring Physician Orthopedic Surgery 06/26/23 Lee Chandler MD [address] [place] [address] Surgeon Anesthesiology 02/25/12 Kimberlee Calhoun DO [address] [facility] [place] [address] Consulting Physician Otolaryngology 10/01/24
--- OUTSIDE RECORDS SUMMARY | 2024-11-08 15:14 | XMS_ITS | Referral Summary ---
Author Organization [facility] Address [address] [place] [address] Care Team Providers Care Medical Record Librarians Teacher Name Role Phone Nannette Mayo MD Primary Care Provider [phone] Elkin Purvis MD Unavailable Aris Luis MD Unavailable Leah Hanley MD Unavailable [phone] Nelsy Bellamy MD Unavailable [phone] Lee Chandler MD Unavailable [phone] Kimberlee Calhoun DO Unavailable [phone] Encounters Date Type Department Care Team Description 11/08/2024 Telephone [facility] [address] [place] [phone] Nannette Mayo MD X-ray 10/31/2024 Orders Only [facility] [address] [place] [address] Daniel Todd MD Stenosis of left carotid artery (Primary Dx) 10/30/2024 2:45 PM CDT Office Visit [facility] [address] [place] [address] Daniel Todd MD Stenosis of left carotid artery 10/29/2024 [facility]phone [facility] [address] [place] [address] Nannette Mayo MD 10/24/2024 Telephone [facility] [address] [place] [address] Nannette Mayo MD 10/24/2024 Telephone [facility] [address] [place] [address] Nannette Mayo MD 10/22/2024 Results Follow-Up [facility] - [facility] [address] [place] [phone] Kimberlee Calhoun, DO Stenosis of left carotid artery (Primary Dx) 10/22/2024 2:22 PM USABILITY SPECIALIST - 10/22/2024 11:59 PM USABILITY SPECIALIST Hospital Encounter [facility] - Imaging [address] [place] [address] Mass of trachea Discharge Disposition: Discharge to home or self care 10/22/2024 Telephone [facility] [address] [place] [address] Blanquita Dee MA 10/15/2024 10:00 AM USABILITY SPECIALIST Office Visit [facility] [address] [place] [address] Shane Bains NP Atypical facial pain (Primary Dx); Cervical radiculopathy; Localized swelling, mass and lump, neck; Anxiety and depression 10/14/2024 Telephone [facility] [address] [place] [address] Nannette Mayo MD wants labs explained 10/10/2024 Orders Only [facility] - [facility] [address] [place] [address] Kimberlee Calhoun, Mass of trachea (Primary Dx) 10/10/2024 Telephone [facility] - [facility] [address] [place] [address] Apple Barron MA 10/03/2024 1:30 PM USABILITY SPECIALIST Office Visit [facility] - [facility] [address] [place] [address] Kimberlee Calhoun DO Laryngopharyngeal reflux (LPR) (Primary Dx); Mass of trachea 10/01/2024 Telephone [facility] [address] [facility] [address] [place] [address] Fabiola Mejia RN 10/01/2024 1:30 PM USABILITY SPECIALIST Ancillary Procedure [facility] [address] [address] [address] [place] [address] Mass of trachea 10/01/2024 1:50 PM USABILITY SPECIALIST Lab [facility] [address] [place] [address] Chronic pain syndrome; Fatigue, unspecified type 10/01/2024 1:30 PM USABILITY SPECIALIST Ancillary Procedure [facility] [address] [facility] [address] [address] [place] [address] Acute pain of left shoulder 10/01/2024 10:00 AM USABILITY SPECIALIST Office Visit [facility] [address] [place] [address] Nannette Mayo MD Acute pain of left shoulder (Primary Dx); Primary osteoarthritis involving multiple joints; Mass of trachea; HSV-2 infection; Chronic pain syndrome; Cervical radiculopathy; Lumbar foraminal stenosis; BPH with urinary obstruction; Immunization counseling; Fatigue, unspecified type; Preventative health care from Last 3 Months Allergies Active Allergy Reactions Criticality Noted Date [...] 10/22/2024 Assessment & Plan (10/22/2024 9:03 PM USABILITY SPECIALIST): Acute, worse in the last 2-4 weeks. Possibly related to cervical radiculopathy, see plan above. Anxiety and depression 10/22/2024 Assessment & Plan (10/22/2024 9:08 PM USABILITY SPECIALIST): Chronic, likely present for many years but [...] 11/28/2023 Assessment & Plan (10/22/2024 9:03 PM USABILITY SPECIALIST): Chronic, worse in the last 4-5 months. [...] D.O. Assessment & Plan (06/26/2023 5:52 PM USABILITY SPECIALIST): >>ASSESSMENT AND PLAN FOR SPINAL DEFORMITY WRITTEN [...] medication Assessment & Plan (06/26/2023 5:52 PM USABILITY SPECIALIST): >>ASSESSMENT AND PLAN FOR SPINAL DEFORMITY WRITTEN [...] MRI Assessment & Plan (06/26/2023 5:52 PM USABILITY SPECIALIST): >>ASSESSMENT AND PLAN FOR SPINAL DEFORMITY WRITTEN [...] well. Assessment & Plan (06/26/2023 5:52 PM USABILITY SPECIALIST): >>ASSESSMENT AND PLAN FOR SPINAL DEFORMITY WRITTEN ON 06/26/2023 5:51 PM BY NANNETTE MAYO MD >>ASSESSMENT AND PLAN FOR LUMBAR RADICULOPATHY WRITTEN ON 06/26/2023 5:42 PM BY NANNETTE MAYO MD >>ASSESSMENT AND PLAN FOR CHRONIC BILATERAL LOW BACK PAIN WRITTEN ON 04/14/2021 11:36 AM BY ELÍAS WARD NP Patient has continued chronic low back pain [...] feet. Assessment & Plan (06/26/2023 5:52 PM USABILITY SPECIALIST): >>ASSESSMENT AND PLAN FOR SPINAL DEFORMITY WRITTEN ON 06/26/2023 5:51 PM BY NANNETTE MAYO MD >>ASSESSMENT AND PLAN FOR LUMBAR RADICULOPATHY WRITTEN ON 06/26/2023 5:42 PM BY NANNETTE MAOY MD >>ASSESSMENT AND PLAN FOR CHRONIC BILATERAL LOW BACK PAIN WRITTEN ON 11/24/2021 10:35 AM BY ELÍAS WARD NP Patient has chronic low back pain with [...] needed. Assessment & Plan (06/26/2023 5:52 PM USABILITY SPECIALIST): >>ASSESSMENT AND PLAN FOR SPINAL DEFORMITY WRITTEN [...] under the care of a physician in [place] that is providing him with injections and [...] GANESH Assessment & Plan (06/26/2023 5:52 PM USABILITY SPECIALIST): >>ASSESSMENT AND PLAN FOR SPINAL DEFORMITY WRITTEN [...] Syndrome Assessment & Plan (09/12/2023 12:23 PM USABILITY SPECIALIST): Seeing pain management, spinal injections helped significantly. [...] any other acute changes. Get records from [place] [facility]. Continue [place] PRN and any OTC treatments you feel are helping. Follow up after MRI. Assessment & Plan (10/01/2020 10:11 AM USABILITY SPECIALIST): Patient has known history of chronic pain [...] therapy. Assessment & Plan (08/26/2019 12:14 PM USABILITY SPECIALIST): Continues to have c/o back pain with [...] prescribed. Assessment & Plan (07/15/2019 11:25 AM USABILITY SPECIALIST): Pt does not wish to try cymbalta or lamictal as prescribed for pain as he has concern over the side effects. Will do xray of spine to r/o any acute process. Will also refer to PT. If symptoms do not improve can consider pain management Localized swelling, mass and lump, neck 06/29/20 09 Overview (11/25/2016): Cervicalgia Assessment & Plan (10/22/2024 9:06 PM USABILITY SPECIALIST): Acute, noted by Dr. Mayo 2 weeks [...] needed. Assessment & Plan (07/15/2019 11:59 AM USABILITY SPECIALIST): He has limited ROM with extension and pain with rotation. Will do xray of cervical spine. Will plan for PT pending results of xray Laryngopharyngeal reflux (LPR) Assessment & Plan (10/03/2024 2:53 PM USABILITY SPECIALIST): Take Omeprazole (Prilosec) 40 mg 30-60 minutes [...] Keflex dosing. Viral URI with cough 10/18/2023 Assessment & Plan (10/18/2023 12:52 PM USABILITY SPECIALIST): URI symptoms for 1 week. Tested negative [...] 024 Assessment & Plan (09/12/2023 12:18 PM USABILITY SPECIALIST): See ER details and workup as noted [...] if needed. Shortness of breath 04/26/2022 11/28/19 24 Assessment & Plan (04/29/2022 5:36 PM CDT): [...] 10/20/202110/29 Assessment & Plan (10/20/2021 10:27 AM USABILITY SPECIALIST): Patient has acute rt ankle pain that occurred after an injury at [facility] last week. 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 Probably not cause of his pain. Presented to emergency room April 2020 with findings of unchanged celiac artery dissection. Referred to [facility] with ELKIN Dahl vascular surgery at [place]: W ith regards to the celiac artery [...] place referral to Dr. Jas Yan of [facility] plastic surgery to evaluate for nerve compression as a possible etiology for his discomfort Peroneal neuropathy, left 04/24/2020 Left leg pain 03/12/2020 04/24/2020 Esophagitis 03/12/2020 05/13/2020 Other chest pain 02/28/2020 11/28/2023 Assessment & Plan (10/18/2023 12:49 PM USABILITY SPECIALIST): Reproducible on palpation, likely costochondritis related to URI see plan above. Assessment & Plan (10/20/2021 10:26 AM USABILITY SPECIALIST): Patient has reports of continued chest pain. [...] condition Assessment & Plan (07/15/2019 11:55 AM USABILITY SPECIALIST): Pt does not wish to take medication [...] Continue current regimen and heat/ice as tolerated. 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 Not on file Not on file Not on file Last Filed Vital Signs Vital Sign Reading Time Taken Comments Blood Pressure 103/70 10/30/2024 3:20 PM CDT Pulse 78 10/30/2024 3:20 PM CDT Temperature 36.4 C (97.6 F) 10/15/2024 10:01 AM USABILITY SPECIALIST Respiratory Rate 18 10/15/2024 10:01 AM USABILITY SPECIALIST Oxygen Saturation 96% 10/15/2024 10:01 AM USABILITY SPECIALIST Inhaled Oxygen Concentration - - Weight 78.9 kg (174 lb) 10/30/2024 3:20 PM CDT Height 180.3 cm (5' 11 ) 10/30/2024 3:20 PM CDT Body Mass Index 24.27 10/30/2024 3:20 PM CDT Plan of Treatment Not on file Medical Devices Implanted Type Area Bathhouse Keeper Device Identifier Shelf Expiration Date Model / Serial / Lot [employer] Bard [id number] Perfix 1.35in 1in Monofilament Nonabsorbable Groin Small Taper - [id number] Implanted:Qty: 1 on 01/31/2018 by Jas Nair MD at [facility] Mesh Right: Inguinal [employer] [id number] 05/18/2021 [id number] / / [id number] Procedures Procedure Name Priority Date/Time Associated Diagnosis Comments CT SOFT TISSUE NECK W CONTRAST Schedule Routine, Read Routine (OP Routine) 10/22/2024 2:40 PM USABILITY SPECIALIST Mass of trachea US SOFT TISSUE HEAD NECK Schedule Routine, Read Routine (OP Routine) 10/01/2024 1:50 PM USABILITY SPECIALIST Mass of trachea XR SHOULDER LEFT 2 OR MORE VIEWS Schedule Routine, Read Routine (OP Routine) 10/01/2024 1:29 PM USABILITY SPECIALIST Acute pain of left shoulder EGFR Routine 10/01/2024 1:23 PM USABILITY SPECIALIST Chronic pain syndrome Fatigue, unspecified type DIFFERENTIAL AUTO Routine 10/01/2024 1:2 3 PM USABILITY SPECIALIST Chronic pain syndrome Fatigue, unspecified type COMPREHENSIVE METABOLIC PANEL Routine 10/01/2024 1:23 PM USABILITY SPECIALIST Chronic pain syndrome Fatigue, unspecified type CBC WITH AUTO DIFFERENTIAL Routine 10/01/2024 1:23 PM USABILITY SPECIALIST Chronic pain syndrome Fatigue, unspecified type TSH Routine 10/01/2024 1:23 PM USABILITY SPECIALIST Chronic pain syndrome Fatigue, unspecified type CREATINE KINASE (CK), TOTAL Routine 10/01/2024 1:23 PM USABILITY SPECIALIST Chronic pain syndrome Fatigue, unspecified type VITAMIN B12 Routine 10/01/2024 1:23 PM USABILITY SPECIALIST Chronic pain syndrome Fatigue, unspecified type PSA SCREEN Routine 01/02/2024 2:11 PM CDT Prostate cancer screening COLONOSCOPY 11/02/2022 10:47 AM CDT HEPATITIS C ANTIBODY Routine 02/09/2021 12:11 PM CDT Encounter for hepatitis C screening test for low risk patient from Last 3 Months or Most Recently Relevant to Health Maintenance Results * CT Soft Tissue Neck with Contrast (10/22/2024 2:40 PM USABILITY SPECIALIST) Anatomical Region Laterality Modality Head and Neck N/A Computed Tomogra phy 10/22/2024 3:39 PM USABILITY SPECIALIST Impressions 10/22/2024 3:39 PM USABILITY SPECIALIST 1. Prominent vascular vessel near midline at [...] Donald Bob M.D. Narrative 10/22/2024 3:[address] SOFT TISSUE NECK W CONTRAST 10/22/2024 [...] Head Neck Soft Tissue (10/01/2024 1:50 PM USABILITY SPECIALIST) Anatomical Region Laterality Modality Head and Neck N/A Ultrasound 10/03/2024 7:54 AM USABILITY SPECIALIST Narrative 10/03/2024 7:56 AM USABILITY SPECIALIST EXAM DESCRIPTION: US SOFT TISSUE HEAD NECK REASON FOR STUDY: mass on front of neck Mass on front of neck/trachea, neck/jaw pain and swelling x 1 week or longer TECHNIQUE: A Dynamic assessment was performed of the anterior mid neck and thyroid by the lead performance support analyst, with selected grayscale and color Doppler images [...] Mitchell Ng D.O. AP: AP Report ID: [id number] Reading Location: [id number] Procedure Note Mitchell Ng DO - 10/03/2024 EXAM DESCRIPTION: US SOFT TISSUE HEAD NECK REASON FOR STUDY: mass on front of neck Mass on front of neck/trachea, neck/jaw pain and swelling x 1 week orlonger TECHNIQUE: A Dynamic assessment was performed of the anterior mid neckand thyroid by the lead performance support analyst, with selected grayscale and color Dopplerimages acquired [...] Mitchell Ng D.O. AP: AP Report ID: [id number] Reading Location: [id number] us Nannette Mayo MD IMG US PROCEDURES Final Re sult * XR Shoulder Left 2 or More Views (10/01/2024 1:29 PM USABILITY SPECIALIST) Anatomical Region Laterality Modality Upper Extremities, Shoulder Left Comp uted Radiography 10/03/2024 3:27 PM USABILITY SPECIALIST Narrative 10/03/2024 3:28 PM USABILITY SPECIALIST EXAM DESCRIPTION: XR SHOULDER LEFT 2 OR [...] Michela Stapleton D.O. PS: PS Report ID: [id number] Reading Location: [id number] Procedure Note Michela Stapleton DO - 10/03/2024 [...] Michela Stapleton D.O. PS: PS Report ID: [id number] Reading Location: [place] [address] Nannette Mayo MD IMG XR PROCEDURES Final Re sult * eGFR (10/01/2024 1:23 PM USABILITY SPECIALIST) eGFR 71 >=60 mL/min/1. 73 m2 Comment: [...] was last reviewed 2021. Testing performed by: [address] [address] Blood 10/01/2024 1:23 PM USABILITY SPECIALIST 10/01/2024 9:10 PM USABILITY SPECIALIST Nannette Mayo MD LAB BLOOD ORDERABLES Final Result [address] Department [place] [address] * Differential, auto (10/01/2024 1:23 PM USABILITY SPECIALIST) Neutrophil abs 3.9 1.5 - 6.5 K/cumm Comment:Testing performed by : [address] [address] Imm gran abs 0.0 0.0 - 0.1 K/cumm CERNER Comment:Testing performed by : [address] [address] Lymphocyte abs 2.5 0.8 - 3.3 K/cumm CERNER Comment:Testing performed by : [address] [address] Monocyte abs 0.6 0.2 - 0.8 K/cumm CERNER Comment:Testing performed by : [address] [address] Eosinophil abs 0.2 0.0 - 0.5 K/cumm CERNER Comment:Testing performed by : [address] [address] Basophil abs 0.1 0.0 - 0.1 K/cumm CERNER Comment:Testing performed by : [address] [address] Neutrophil pct 54.4 % CERNER Comment: Interpretive Data Percent cell count reference ranges are not reported, since discordance with absolute values may lead to misinterpretation of CBC data. Current Interpretive Data was last revised on 2017. Testing performed by: [address] [address] Imm gran pct 0.1 % CERNER Comment: Interpretive Data Percent cell count reference ranges are not reported, since discordance with absolute values may lead to misinterpretation of CBC data. Current Interpretive Data was last revised on 2017. Testing performed by: [facility], [address] [place] [address]., [address] Lymphocyte pct 34.7 % CERNER Comment: Interpretive Data Percent cell count reference ranges are not reported, since discordance with absolute values may lead to misinterpretation of CBC data. Current Interpretive Data was last revised on 2017. Testing performed by: [address] [address] Monocyte pct 7.9 % CERNER Comment: Interpretive Data Percent cell count reference ranges are not reported, since discordance with absolute values may lead to misinterpretation of CBC data. Current Interpretive Data was last revised on 2017. Testing performed by: [address] [address] Eosinophil pct 2.1 % CERNER Comment: Interpretive Data Percent cell count reference ranges are not reported, since discordance with absolute values may lead to misinterpretation of CBC data. Current Interpretive Data was last revised on 2017. Testing performed by: [address] [address] Basophil pct 0.8 % CERNER Comment: Interpretive Data Percent cell count reference ranges are not reported, since discordance with absolute values may lead to misinterpretation of CBC data. Current Interpretive Data was last revised on 2017. Testing performed by: [address] [address] Blood 10/01/2024 1:23 PM USABILITY SPECIALIST 10/01/2024 8:53 PM USABILITY SPECIALIST us Nannette Mayo MD LAB BLOOD ORDERABLES Final Result [address] Department [place] [address] * CBC with auto differential (10/01/2024 1:23 PM USABILITY SPECIALIST) [facility] WBC 7.2 3.8 - 9.9 K/cumm Comment:Testing performed by : [address], [address] Hgb 15.8 13.0 - 17.5 g/dL CERNER CH Comment:Testing performed by : [address], [address] Hct 47.8 38.9 - 50.3 % CERNER CH Comment:Testing performed by : [facility], [address] [place] [address], [address] Plt 211 150 - 400 K/cumm CERNER CH Comment:Testing performed by : [address], [address] MPV 10.8 9.1 - 12.3 fL CERNER CH Comment:Testing performed by : [address], [address] RBC 4.96 4.30 - 5.80 M/cumm CERNER CH Comment:Testing performed by : [address], [address] MCV 96.4 81.3 - 96.4 fL CERNER CH Comment:Testing performed by : [address], [address] MCH 31.9 27.1 - 33.3 pg CERNER CH Comment:Testing performed by : [address], [address] MCHC 33.1 32.3 - 35.7 g/dL CERNER CH Comment:Testing performed by : [address], [address] RDW CV 12.5 11.1 - 14.9 % CERNER CH Comment:Testing performed by : [address], [address] RDW SD 44.7 35.7 - 48.1 fL CERNER CH Comment:Testing performed by : [address], [address] NRBC abs 0.00 0.00 - 0.01 K/cumm CERNER CH Comment:Testing performed by : [address], [address] Blood 10/01/2024 1:23 PM USABILITY SPECIALIST 10/01/2024 8:53 PM USABILITY SPECIALIST Result Smith Mayo MD LAB BLOOD ORDERABLES Final Result Performing Organization Address [facility] Co de Phone Number [facility] [address] [facility] [place] [address] * TSH (10/01/2024 1:23 PM USABILITY SPECIALIST) Thyroid Stimulating Hormone 1.77 0.30 - 4.20 mcIUnit/mL Comment:Testing performed by : [address], [address] Blood 10/01/2024 1:23 PM USABILITY SPECIALIST 10/01/2024 8:53 PM USABILITY SPECIALIST Result Smith Mayo MD LAB BLOOD ORDERABLES Final Result Performing Organization Address [facility] Co de Phone Number [place] [phone] [facility] [place] [address] * Vitamin B12 (10/01/2024 1:23 PM USABILITY SPECIALIST) Pathologist [facility] Vitamin B12 269 230 - 1,250 pg/mL Comment:Testing performed by : [address], [address] Blood 10/01/2024 1:23 PM USABILITY SPECIALIST 10/01/2024 8:53 PM USABILITY SPECIALIST Result Smith Mayo MD LAB BLOOD ORDERABLES Final Result Performing Organization Address [facility] Co de Phone Number [facility] [address] [facility] [place] [address] * (ABNORMAL) Creatine kinase (CK), total (10/01/2024 1:23 PM USABILITY SPECIALIST) CK 39(L) 40 - 300 Units/L Comment:Testing performed by : [address] [address] Blood 10/01/2024 1:23 PM USABILITY SPECIALIST 10/01/2024 8:53 PM USABILITY SPECIALIST us Nannette Mayo MD LAB BLOOD ORDERABLES Final Result [address] Department [place] [address] * Comprehensive metabolic panel (10/01/2024 1:23 PM USABILITY SPECIALIST) Sodium 141 135 - 145 mmol/L Comment:Testing performed by : [facility], [address] [place] [address], [address] Potassium, pl 4.8 3.3 - 4.9 mmol/L [facility] Comment:Testing performed by : [address], [address] Chloride 102 97 - 110 mmol/L [facility] Comment:Testing performed by : [address], [address] CO2 24 22 - 32 mmol/L [facility] Comment:Testing performed by : [address], [address] Anion gap 15 2 - 15 mmol/L [facility] Comment:Testing performed by : [address] [address] BUN 12 6 - 25 mg/dL [facility] Comment:Testing performed by : [address], [address] Creatinine 1.13 0.80 - 1.30 mg/dL [facility] Comment:Testing performed by : [address], [address] Glucose 88 70 - 199 mg/dL [facility] Comment: Interpretive Data Fasting glucose >/= 126 [...] was last revised 2022. Testing performed by: [facility], [address] [place] [address]., [address] Calcium 9.8 8.5 - 10.3 mg/dL CERNER Comment:Testing performed by : [facility], [address] [place] [address]., [address] Bilirubin, total 0.6 0.1 - 1.2 mg/dL CERNER CH Comment:Testing performed by : [facility], [address] [place] [address]., [address] Protein, pl 7.5 6.5 - 8.5 g/dL CERNER CH Comment:Testing performed by : [facility], [address] [place] [address]., [address] Albumin 4.6 3.5 - 5.0 g/dL CERNER CH Comment:Testing performed by : [address], [address] Alk phos 74 40 - 130 Units/L CERNER CH Comment:Testing performed by : [facility], [address] [place] [address]., [address] ALT 17 7 - 55 Units/L CERNER CH Comment:Testing performed by : [address], [address] AST 25 10 - 50 Units/L CERNER CH Comment:Testing performed by : [address] [address] Blood 10/01/2024 1:23 PM USABILITY SPECIALIST 10/01/2024 8:53 PM USABILITY SPECIALIST Nannette Mayo MD LAB BLOOD ORDERABLES Final Result [address] Department [place] [address] * PSA screen (01/02/2024 2:11 PM CDT) [...] data last revised 21. Testing performed by: [facility], [address] [place] [address], [place]., [address] Blood 01/02/2024 2:11 PM CDT 01/02/2024 6:37 PM CDT us Nannette Mayo MD LAB BLOOD ORDERABLES Final Result [facility] [address] [facility] Department of Laboratories [place] [id number] * COLONOSCOPY (11/02/2022 10:47 AM CDT) Anatomical Region Laterality Modality Other Narrative Procedure Note Leah Hanley MD - 11/02/2022 10:47 AM CDT ENDOSCOPY LAB Patient Name: Abilio Ugarte Procedure Date: 11/02/2022 10:47 AM Date of : 1955 Admit Type: Outpatient Age: 67 Gender: Male Attending MD: Leah Hanley M.D. Room: [facility] ENDOSCOPY ROOM 05 Note Status: Finalized Procedure: [...] The scope was passed under direct vision.The [id number] was introduced through the anusand advanced to [...] 0 Note Initiated On: 11/02/2022 10:47 AM Leah Hanley MD ENDOSCOPY PROCEDURES Final Res [...] GENERAL ORDERABLES Final Result JOSE FRANCISCO [facility]OO[facility] [id number] [place] [address] from Last 3 Months or Most Recently Relevant to Health Maintenance Insurance [facility] MEDICARE ADVANTAGE [facility] MEDICARE Address: [address] [address] [place] [address] [facility] MEDICARE ADVANTAGE [facility] MEDICARE Address: [address] [address] [place] [address] [facility] MED[facility] Address: [address] [address] [place] [address] [employer] MEDICARE ADVANTAGE [facility] MEDICARE Address: [id number] [place] [address] Advance Directives For more information, please contact: [phone] Documents on File Type Date Recorded Patient Marker Hand Expl anation ADVANCE DIRECTIVE 05/24/2022 POLST/DNR ADVANCE DIRECTIVE 01/28/2020 POWER OF A TTORNEY-MEDICAL ADVANCE DIRECTIVE 05/29/2017 2:23 PM POWER OF YARN EXAMINER SKEINS * Full Code (Latest Code Status on File) Date Activated Date Inactivated Comments 11/02/2022 9:39 AM 11/02/2022 4:19 PM * Full Code Date Activated Date Inactivated Comments 03/20/2020 7:58 AM 03/20/2020 1:30 PM Care Teams Medical Record Librarians Teacher Relationship Specialty Start Date End Date Nannette Mayo MD PCP - General 11/18/16 Elkin Purvis MD Surgeon Vascular Surgery 05/10/20 [place] [address] [place] [address] Consulting Physician Urology 06/13/22 Leah Hanley MD [address] [place] [address] Referring Physician Gastroenterology 02/25/20 [place] [address] [place] [address] Referring Physician Orthopedic Surgery 06/26/23 Lee Chandler MD [address] [place] [address] Surgeon Anesthesiology 02/25/12 Kimberlee Calhoun DO [address] [facility] [place] [address] Consulting Physician Otolaryngology 10/01/24
--- OUTSIDE RECORDS SUMMARY | 2024-11-08 15:14 | XMS_ITS | Encounter Summary ---
Author Organization [facility] Address [address] [place] [address] Phone Care Team Providers Care Keyboard Teacher Name Role Phone Nannette Hubbard MD Primary Care Provider [phone] Herrera Silva MD Unavailable [phone] Coleman Franklin MD Unavailable [phone] Elkin Purvis MD Unavailable [phone] Aris Luis MD Unavailable [phone] Leah Hanley MD Unavailable [phone] Nelsy Bellamy MD Unavailable [phone] Lee Chandler MD Unavailable [phone] Kimberlee Calhoun DO Unavailable [phone] Encounter Details Date Type Department Care Team (Late st Contact Info) Description 11/22/2017 Orders Only [facility] ProviderMarta [place] [address] Social History Tobacco Use Types Packs/Day Years Used Date Smoking Tobacco: Never Smokeless Tobacco: Never Alcohol Use Standard Drinks/Week Comments No 0 (1 standard drink = 0.6 oz pur e alcohol) Sex and Gender Information Value Date Recorded Sex Assigned at Not on file 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 Historical Provider LAB BLOOD ORDERABLES Letty l Result documented in this encounter Visit Diagnoses Not on filedocumented in this encounter Additional Health Concerns Infection Onset Date Last Indicated Resolved Time COVID: Suspected 02/29/2020 02/29/2020 03/14/2020 3:07 AM CDT COVID: Suspected 10/14/2023 10/14/2023 10/14/2023 6:14 PM SWATCH CLERK documented as of this encounter Care Teams Keyboard Teacher Relationship Specialty Start Date End Date Nannette Hubbard MD PCP - General 11/18/16 Herrera Silva MD [address] [place] [address] [place] [address] Surgeon General Surgery 11/22/17 05/23/22 Coleman Franklin MD [address] [place] [address] [place] [address] Surgeon General Surgery 11/22/17 05/23/22 Elkin Purvis MD [address] [place] [address] Surgeon Vascular Surgery 05/10/20 [place] [address] [place] [address] [place] [address] Consulting Physician Urology 06/13/22 Leah Hanley MD [address] [place] [address] Referring Physician Gastroenterology 02/25/20 Nelsy Bellamy MD [address] [place] [address] Referring Physician Orthopedic Surgery 06/26/23 Lee Chandler MD [address] [place] [address] Surgeon Anesthesiology 02/25/12 Kimberlee Calhoun DO [address] [place] [address] Consulting Physician Otolaryngology 10/01/24 documented as of this encounter
[2024-11-08 15:18] VITALS: BP 130/79; PULSE 67; RESP 16; TEMP 36.2; O2SAT 98
--- NOTE | 2024-11-08 15:25 | ED.UPPEXIN ---
HPI - Extremity Injury (Upper) General Chief Complaint: Extremity Injury, Upper Stated Complaint: right arm injury Time Seen by Provider: 11/08/24 15:25 Source: patient Mode of arrival: ambulatory Limitations: no limitations History of Present Illness HPI narrative: 69-year-old male presents with complaint of pain to right wrist and right elbow. Patient states that a heavy for door began to fall and he reached out with right arm to catch it. Range of motion decreased due to pain. All systems reviewed and negative except as noted above. Related Data Home Medications ?Medication ?Instructions ?Recorded ?Confirmed ?Last Taken ?Type baclofen 20 mg tablet 20 mg PO TID 02/29/20 10/24/23 Unknown History famotidine 40 mg tablet 40 mg PO BID 02/29/20 10/24/23 Unknown History finasteride 5 mg tablet 5 mg PO DAILY 02/29/20 10/24/23 Unknown History albuterol sulfate 90 mcg/actuation 2 puff inhalation Q6H PRN Wheezing 10/24/23 10/24/23 Unknown History aerosol inhaler tamsulosin 0.4 mg capsule mg PO 11/08/24 Unknown History Allergies Allergy/AdvReac Type Severity Reaction Status Date / Time codeine AdvReac Nausea and Verified 10/24/23 14:55 Vomiting duloxetine AdvReac Nausea and Verified 10/24/23 14:54 Vomiting Review of Systems Review of Systems: CONSTITUTIONAL: Denies fever, chills, or sweats. EYES: Denies visual changes, redness, or discharge. ENT: Denies rhinorrhea, congestion, sore throat, or otalgia. CARDIOVASCULAR: Denies chest pain, palpitations, or edema. RESPIRATORY: Denies cough or dyspnea. GASTROINTESTINAL: Denies abdominal pain, nausea, vomiting, or diarrhea. GENITOURINARY: Denies dysuria or hematuria. SKIN: Denies rash or itching. MUSCULOSKELETAL: Reports pain to right arm. NEUROLOGIC: Denies headache, numbness, or weakness. PSYCHIATRIC: Denies anxiety or depression. All other systems reviewed are negative, except as documented in HPI. [facility] Past Medical History Medical History Chronic back pain Depression Surgical History Surgical History History of appendectomy History of cholecystectomy History of common bile duct surgery Comments At time of signature, agree with nursing past medical, surgical, social and family history. There is no relevant family history pertinent to the presenting complaint. Exam Narrative: GENERAL: This is a well-nourished, well-developed patient, in no apparent distress. HEAD: normocephalic, atraumatic. EYES: PERRL. Sclera clear/white. Vision is grossly intact. EARS: External ears normal NOSE: External nose normal NECK: Neck supple, non-tender without lymphadenopathy, masses or thyromegaly. CARDIOVASCULAR: Regular rate and rhythm without murmurs, gallops, or rubs. RESPIRATORY: Clear to auscultation. Breath sounds equal bilaterally. No wheezes, rales, or rhonchi. SKIN: warm, Dry, intact with no suspicious lesions or rash, good texture and turgor. NEURO: awake, alert, and oriented to person, place and time. There were no obvious focal neurologic abnormalities. EXTREMITIES: generalized pain R elbow, tenderness R wrist. no deformities Course Course Level of Care: Express Care Visit Vital Signs Vital signs: Vital Signs Temperature 36.2 C L 11/08/24 15:18 Pulse Rate 67 11/08/24 15:18 Respiratory Rate 16 11/08/24 15:18 Blood Pressure 130/79 11/08/24 15:18 Pulse Oximetry 98 11/08/24 15:18 Oxygen Delivery Room Air 11/08/24 15:18 Temperature 36.2 C L 11/08/24 15:18 Pulse Rate 67 11/08/24 15:18 Respiratory Rate 16 11/08/24 15:18 Blood Pressure 130/79 11/08/24 15:18 Pulse Oximetry 98 11/08/24 15:18 Oxygen Delivery Room Air 11/08/24 15:18 Reviewed MDM - Extremity Injury (Upper) MDM Narrative Medical decision making narrative: x-ray right wrist and right elbow are negative for fracture. Recommend [id number] Tylenol. Recommend follow-up primary care physician if pain is not improving. Please be advised this is a medical document. It is intended for myrq-ef-fyku communication. It is written in medical language and may contain unfamiliar abbreviations or verbiage. Medical documents are intended to carry relevant information, facts as evident, and the clinical opinion of the practitioner at the time of the encounter. This report may have been done utilizing a voice recognition system. Attempts have been made to correct errors. However, there may be uncorrected grammatical, spelling, and recognition errors present. The file time of this note does not necessarily represent the time of service. Discharge Plan Discharge Clinical Impression: Sprain and strain of right wrist, Elbow pain, right Patient Disposition: Home, Self-Care Condition: Stable Instructions: Wrist Sprain (ED) Additional Instructions: the x-ray of your right wrist and right elbow was negative for fracture. Take Tylenol every 6-8 hours as needed for pain. Elevate when at rest. Apply ice as needed for pain. See your doctor if symptoms are not improving. Patient Language: Gibraltarian Prescriptions: No Action albuterol sulfate 90 mcg/actuation HFA aerosol inhaler 2 puff INHALATION Q6H PRN (Reason: Wheezing) ofloxacin 0.3 % drops See Rx Instructions EACH EYE .COMPLEX Qty: 10 0RF Rx Instructions: put 2 drops into right eye every 2-4 h x 2 days, then 2 drops 4 times/day days 3-7 famotidine 40 mg tablet 40 mg PO BID baclofen 20 mg tablet 20 mg PO TID finasteride 5 mg tablet 5 mg PO DAILY tamsulosin 0.4 mg capsule PO Follow-up/Referrals: Stevie,MD Nannette [Primary Care Provider] - Time of Disposition: 15:59
== END 2024-11-08 16:04 | disposition home or self-care (01) ==
PROVIDERS: Emergency Provider Nurse Practitioner Family; PCP Internal Medicine Geriatric Medicine
DX: S63.501A Unspecified sprain of right wrist, initial encounter (principal); S66.911A Strain of unspecified muscle, fascia and tendon at wrist and hand level, right hand, initial encounter; W20.8XXA Other cause of strike by thrown, projected or falling object, initial encounter; M25.521 Pain in right elbow
CPT/HCPCS: 73080; 73110; 99214; G0463